=== PATIENT | male | born 2000 | race Hispanic/Latino ===

== ENCOUNTER 2025-08-02 11:22 | Emergency (ER) | payer SELFPAY ==
[2025-08-02 11:26] VITALS: BP 134/87
--- NOTE | 2025-08-02 12:22 | ED.SKININJ ---
HPI-Injury
General
Chief Complaint: Skin Surface Trauma
Source: patient
Time Seen by Provider: 08/02/25 11:55
History of Present Illness-Injury
Initial Injury comments:
24-year-old male presents with laceration to left hand he sustained today. He was using a sheet metal layout mechanic and it kicked back and cut him on the back of his hand. He was initially seen at the urgent care and they were concerned for possible extensor
tendon injury and sent him here for evaluation. Last tetanus unknown. Patient denies numbness tingling or loss of function. No other complaints
Phy Exam
Physical Exam
Physical Exam:
General: Well-appearing male no acute respiratory distress
HEENT: Normal cephalic atraumatic
Skin: 3 cm laceration dorsal aspect left hand. The extensor tendons for the index finger is visible through the wound. Upon full range of motion of the finger there is a very small disruption of the edge of the tendon but otherwise the tendon is
intact and functional no current bleeding. Neurologic exam: Good sensation left hand
Course
Orders/Labs/Results
Orders:
Orders
08/02/25 11:56
CR Hand - Left Min 3 Views Urgent
Comment:
Reason For Exam: LAC
08/02/25 12:19
Tetanus/Diphth/Acelpertussis [Adacel] 0.5 ml IM .ONCE ONE
Vital Signs
Initial and Last Documented VS:
Initial Vital Signs
Temp Pulse Resp BP Pulse Ox
98.5 F 57 16 134/87 98
08/02/25 11:26 08/02/25 11:26 08/02/25 11:26 08/02/25 11:26 08/02/25 11:26
Last Documented Vital Signs
Temp Pulse Resp BP Pulse Ox
98.5 F 57 16 134/87 98
08/02/25 11:26 08/02/25 11:26 08/02/25 11:26 08/02/25 11:26 08/02/25 12:25
MDM/Problems Addressed
Differential Diagnosis Includes:
Laceration left hand. Minimal extensor tendon involvement. X-ray ordered through triage of the hand to evaluate for bony abnormality. Patient will require suture closure
*Pulse Oximetry
SaO2: 98
Oxygen Mode of Delivery: Room air
Patient hypoxic: no
*Critical Care Note
Total Time (30-74mins, 75-104mins- exclusive of procedures): Not Applicable
Update Note
Update Note:
X-ray negative for foreign body or bony injury. The wound was copiously irrigated with saline solution and anesthetized with 1% lidocaine and closed in a layered fashion using 5-0 Vicryl for the subcutaneous tissue and 5-0 Prolene in a running
fashion for the skin. A total of 7 sutures were required to do so. There was minimal if any tendon involvement of the laceration he maintains full function. Do not anticipate the need for any surgical intervention but will recommend he follow-up
hand specialist for further evaluation
ED Attending Note
-
Portions of this chart may have been created with voice recognition software.� Occasional wrong word or��sound alike� substitutions may have occurred due to the inherent limitations of voice recognition software.
Discharge Plan
Departure
Patient Disposition: Home (Routine Discharge)
Date of Disposition: 08/02/25
Time of Disposition: 13:17
Patient with high blood pressure during this ER visit?: No
Discharge Problem:
Laceration
Instructions: Laceration Repair With Stitches (DC)
Referrals:
NONE,* [Family Provider, Internal Medicine]
Saulo Downing MD [Active, Orthopedics]
Activity Restrictions/Additional Instructions:
Please follow-up with hand specialist. Have sutures removed in 10 days.
Interventions
Interventions:
*Risk Screen - Suicide Last Done: 08/02/25 11:26
*General Assessment Last Done: 08/02/25 11:26
*Neglect/Abuse Screening Last Done: 08/02/25 11:26
*ED- Fall Risk Assessment Last Done: 08/02/25 11:26
*ED COVID-19 Vaccine History Last Done: 08/02/25 11:26
*ED Influenza Vaccine History Last Done: 08/02/25 11:26
ED-Skin Assessment Last Done: 08/02/25 11:51
Discharge Date and Time
Print Language: [id number]
[2025-08-02] MEDS: ADACEL 0.5 ML IM (12:29)
== END 2025-08-02 13:29 | disposition home or self-care (01) ==
LOC: EMR 11:22
PROVIDERS: EMERGENCY PHYSICIAN Student in an Organized Health Care Education/Training Program
DX: S61.412A Laceration without foreign body of left hand, initial encounter (principal); W29.8XXA Contact with other powered hand tools and household machinery, initial encounter; Z23 Encounter for immunization
CPT/HCPCS: 12002; 90471; 99283; 73130; 90715